=== PATIENT | female | born 1955 | race Caucasian/White ===

== ENCOUNTER 2017-10-01 14:09 | Emergency (ER) | payer OTHER ==
[~2017-10-01] VITALS: Ht 177.8 cm; Wt 107.5 kg
[2017-10-01 14:18] VITALS: BP 120/61; TEMP 98.1
[2017-10-01] MEDS ORDERED: DIOVAN 40MG40 MG PO (14:25)
[2017-10-01] MEDS ORDERED: IBU800 M1 PO (14:26)
[2017-10-01] MEDS ORDERED: CRUTCHES MC (15:16)
[2017-10-01] MEDS ORDERED: NORCO 325 MG-51 TAB PO (15:16)
[2017-10-01 16:02] VITALS: PULSE 88
== END 2017-10-01 15:52 | disposition home or self-care (01) ==
LOC: COL.ER 14:09
DX: S92.354A Nondisplaced fracture of fifth metatarsal bone, right foot, initial encounter for closed fracture (principal); S92.344A Nondisplaced fracture of fourth metatarsal bone, right foot, initial encounter for closed fracture; W01.0XXA Fall on same level from slipping, tripping and stumbling without subsequent striking against object, initial encounter; X50.1XXA Overexertion from prolonged static or awkward postures, initial encounter
CPT/HCPCS: Q4045

== ENCOUNTER 2021-09-24 12:47 | Emergency (ER) | payer OTHER ==
[~2021-09-24] VITALS: Ht 177.8 cm; Wt 100.0 kg
[~2021-09-24 12:47] MED LIST: CRUTCHES MC; DIOVAN 40MG40 MG PO; IBU800 M1 PO; NORCO 325 MG-51 TAB PO
[2021-09-24 12:59] VITALS: BP 144/94; PULSE 91; TEMP 98.7
[2021-09-24] MEDS ORDERED: PROZAC 20MG20 MG PO (13:09)
[2021-09-24] MEDS ORDERED: NEURONTIN300 MG/CAP (13:10)
[2021-09-24] MEDS ORDERED: GLUCOPHAGE1000 MG PO (13:10)
[2021-09-24] MEDS ORDERED: WELLBUTRIN XL300 M1 PO (13:10)
== END 2021-09-24 13:34 | disposition home or self-care (01) ==
LOC: COL.ER 12:47
DX: S63.287A Dislocation of proximal interphalangeal joint of left little finger, initial encounter (principal); W01.0XXA Fall on same level from slipping, tripping and stumbling without subsequent striking against object, initial encounter; Y92.009 Unspecified place in unspecified non-institutional (private) residence as the place of occurrence of the external cause